=== PATIENT | male | born 1980 | race Caucasian/White ===

== ENCOUNTER 2025-01-20 20:02 | Emergency (ER) | payer BC, SELFPAY ==
[2025-01-20] VITALS (23 sets, daily range): BP systolic 132–139; BP diastolic 86–90; PULSE 108–133; TEMP 37.1; O2SAT 94–98; BMI 32.7
--- OUTSIDE RECORDS SUMMARY | 2025-01-20 20:13 | XMS_ITS | Clinical Summary ---
Author Organization [facility] Address [id number] [address] [place] [address] Care Team Providers Care Manager Service Desk Name Role Phone Aldo Cruz DO Primary Care Provider [phone] Allergies No known active allergies Medications MedicationSigDispense QuantityRefillsLast FilledStart DateEnd DateStatus allopurinoL (ZYLOPRIM) 100 mg tablet Take 1 tablet (100 mg total) by mouth in the morning.Active omeprazole (PriLOSEC) 20 mg capsule Take 1 capsule (20 mg total) by mouth in the morning.Active losartan (COZAAR) 50 mg tablet Take 1 tablet (50 mg total) by mouth in the morning.Active buPROPion (WELLBUTRIN) 100 mg tablet Take 1 tablet (100 mg total) by mouth in the morning and 1 tablet (100 mg total) before bedtime.Active Social History Tobacco UseTypesPacks/DayYears UsedDateSmoking Tobacco: NeverSmokeless Tobacco: Never Tobacco Cessation:Counseling Given: Not Answered Alcohol UseStandard Drinks/WeekCommentsYes0 (1 standard drink = 0.6 oz pure alcohol)occasionallyChildcareAnswerDate ZpcakiiaBwuzxpcefWfdgiro66/12/2019 EmploymentAnswerDate DdstklhqBnkseftkkgSdsvsde66/12/2019Hunger ScreeningAnswer Date RecordedWithin the past 12 months we worried whether our food would run out before we got money to buy more.Never True07/14/2022Within the past 12 months the food we bought just didn't last and we didn't have money to get more.Never True07/14/2022urpose - LifeAnswerDate RecordedPurpose and direction in life Qduiwpd0005/08/2020ex and Gender InformationValueDate RecordedSex Assigned at BirthNot on fileLegal AwlYepe1310/31/2014 11:41 AM EDTGender IdentityNot on file Sexual OrientationNot on file Last Filed Vital Signs Vital SignReadingTime TakenCommentsBlood Zgoynkvw016/9404 8:15 PM EDT Hytms9072 8:15 PM ZDFDiemqxgpzrc91.8 ??C (98.2 ??F)07/14/2022 8:15 PM EDTRespiratory Myrd392907/14/2022 8:15 PM EDTOxygen Vlzsmtomox03%07/14/2022 8:15 PM EDTInhaled Oxygen Concentration--Mmdmex875.3 kg (230 lb)07/14/2022 8:15 PM NODNwuvpe519.7 cm (5' 8 )07/14/2022 8:15 PM EDTBody Mass Index34.9707/14/2022 8:15 PM EDT Plan of Treatment Health MaintenanceDue DateLast DoneCommentsDepression Kkyqxrchl22/11/1995Tobacco Rrwvwptra31/11/1995DTaP,Tdap and Td Vaccines (1 - Tdap)2001Adult BMI Pdwvrpmlr60Influenza Axiehrr3211/26/2024 Medical Devices Not on file Insurance Care Teams Team MemberRelationshipSpecialtyStart DateEnd Date Aldo Cruz DO [address] [place] [id number] [facility]05/08/18
--- OUTSIDE RECORDS SUMMARY | 2025-01-20 20:13 | XMS_ITS | Clinical Summary ---
Author Organization [facility] Address [address] [place] [address] Phone Care Team Providers Care Analytics Consultant Name Role Phone Aldo Cruz DO Primary Care Provider [phone] Social History Tobacco UseTypesPacks/DayYears UsedDateSmoking Tobacco: Never AssessedSex and Gender InformationValueDate RecordedSex Assigned at BirthNot on fileLegal Sex Male03/24/2022 9:56 PM ESTGender IdentityNot on fileSexual OrientationNot on file Plan of Treatment Health MaintenanceDue DateLast DoneCommentsHIV Bxaiyzivc19/11/1983Lipid Panel 1982Yearly Adult Irdcnjji03/11/1983MMR Vaccines (1 of 1 - Standard series) 06/06/1983Hepatitis C Nrcwximpa37/11/2001Hepatitis B Vaccines (1 of 3 - 19+ 3- dose series)2001DTaP/Tdap/Td Vaccines (1 - Tdap)2004HPV Vaccines (1 - 3-dose standard series)2009Influenza Vaccine (#1)2024OVID-19 Vaccine (1 - season)2024Zoster Vaccines (1 of 2)2032HIB VaccinesAged OutNo longer eligible based on patient's age to complete this topic Hepatitis A VaccinesAged OutNo longer eligible based on patient's age to complete this topicIPV VaccinesAged OutNo longer eligible based on patient's age to complete this topicMeningococcal VaccineAged OutNo longer eligible based on patient's age to complete this topicPneumococcal Vaccine: Pediatrics and At-Risk Adult PatientsAged OutNo longer eligible based on patient's age to complete this topicRotavirus VaccinesAged OutNo longer eligible based on patient's age to complete this topic Care Teams Team MemberRelationshipSpecialtyStart DateEnd Date Aldo Cruz DO [facility] - Rocfxkq18/25/22
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
--- NOTE | 2025-01-20 20:34 | ECG_ITS ---
[facility] Test Date: 2025-01-20 Pat Name: ELIEL STEIN Department: Room: - Gender: Male Postal Supervisor: : 1980 Requested By: [id number] Order Number: [id number] Reading MD: REMEDIOS FREED M.D. Measurements Intervals Harris Rate: 124 P: 49 WY: 152 QRS: 22 QRSD: 86 T: 43 QT: 332 QTc: 406 Interpretive Statements 1120 Sinus tachycardia 9140 abnormal rhythm ECG No previous ECG available for comparison Electronically Signed On 01-20-2025 22:23:12 EDT by REMEDIOS FREED M.D.
[2025-01-20 20:53] LABS: SARS-CoV-2 Ag POSITIVE (NEGATIVE)
--- NOTE | 2025-01-20 20:55 | ED.URI1 ---
HPI - URI/Sore Throat General Chief Complaint: Upper Respiratory Infection Stated Complaint: FEVER, LIGHTHEADED Time Seen by Provider: 01/20/25 20:51 Source: patient Limitations: no limitations History of Present Illness HPI Narrative: Headache since yesterday. Productive cough but not short of breath. Took sudafed this AM for headache but did not help. Tried ibuprofen yesterday. Tonight feels light headed. No dizziness or GI symptoms Related Data Home Medications ?Medication ?Instructions ?Recorded ?Confirmed allopurinol 300 mg tablet 300 mg PO DAILY 01/20/25 01/20/25 losartan 100 mg tablet 100 mg PO DAILY 01/20/25 01/20/25 omeprazole 40 mg capsule,delayed 40 mg PO DAILY 01/20/25 01/20/25 release Allergies Allergy/AdvReac Type Severity Reaction Status Date / Time No Known Drug Allergies Allergy Verified 01/20/25 20:11 Review of Systems ROS Status of ROS 10 or more systems reviewed and unremarkable except as noted in history and below PFSH PFSH Social History Little interest or pleasure in doing things: not at all Feeling down, depressed, or hopeless: not at all Exam Constitutional Vital Signs, click to edit/add: Last Vital Signs Temp 98.7 F 01/20/25 20:05 Pulse 120 H 01/20/25 22:10 Resp 21 H 01/20/25 22:10 BP 132/86 01/20/25 20:32 Pulse Ox 96 01/20/25 21:20 O2 Del Method Room Air 01/20/25 20:05 Common normals: no apparent distress, average body habitus, oriented x3, no limitations, healthy appearing, alert and well nourished [facility] Common normals: normocephalic and head/scalp atraumatic Eye Common normals: EOMs intact bilaterally and conjunctivae normal Respiratory Common normals: normal respiratory effort, no retractions, no use of accessory muscles and clear to auscultation bilaterally Cardio Common normals: S1 normal heart sound and S2 normal heart sound Rate: tachycardic GI Common normals: Normal to inspection, nondistended, normoactive bowel sounds present, soft to palpation and non-tender Extremity Common normals: normal to inspection and full ROM Neuro Common normals: oriented x3, CN's II-XII intact bilaterally, moves all extremities and no focal motor deficits Psych Appearance: grossly normal Course Vital Signs Vital signs: Vital Signs Temperature 98.7 F 01/20/25 20:05 Pulse Rate 133 H 01/20/25 20:05 Respiratory Rate 18 01/20/25 20:05 Blood Pressure 139/90 01/20/25 20:05 Pulse Oximetry 96 01/20/25 20:05 Oxygen Delivery Method Room Air 01/20/25 20:05 Temperature 98.7 F 01/20/25 20:05 Pulse Rate 120 H 01/20/25 22:10 Respiratory Rate 21 H 01/20/25 22:10 Blood Pressure 132/86 01/20/25 20:32 Pulse Oximetry 96 01/20/25 21:20 Oxygen Delivery Method Room Air 01/20/25 20:05 MDM - URI/Sore Throat MDM Narrative Medical decision making narrative: patient presents with cough but is not short of breath. Has headache and tachycardia. symptoms started yesterday. Did take sudafed earlier today to see if it would help his headache but it did not. Exam neg except for tachycardia. COVID19 positive. Cxray clear per my preliminary review. Patient given solumedrol and magnesium for his headache and IV hydration for tachycardia BRENNER and tachycardia are both improving patient states the pseudophed he took this AM is a once a day medication. It is likely what is contributing to his tachycardia. He is advised to discontinue Pseudophed. He is to drink plenty of fluids and follow up with his family doctor for reheck. lab did demonstrate hypokalemia and this was supplemented and will need to be rechecked. serial troponin neg Lab Data Labs: Lab Results 01/20/25 01/20/25 01/20/25 Range/Units 20:20 21:15 23:56 WBC 8.9 (4.0-11.0) 10^3/uL RBC 4.53 L (4.70-6.10) 10^6/uL Hgb 14.4 (14.0-18.0) g/dL Hct 39.5 L (42.0-54.0) % MCV 87.2 (80.0-94.0) fL MCH 31.8 (25.9-34.0) pg MCHC 36.5 H (29.9-35.2) g/dL RDW 11.9 (11.0-15.0) % Plt Count 288 (150-450) 10^3/uL MPV 9.1 L (9.5-13.5) fL Neut % (Auto) 76.6 H (43.0-75.0) % Lymph % (Auto) 9.3 L (20.5-60.0) % [place] % (Auto) 9.5 (1.7-12.0) % Eos % (Auto) 3.7 (0.9-7.0) % Baso % (Auto) 0.7 (0.2-2.0) % Neut # (Auto) 6.8 H (1.4-6.5) 10^3/uL Lymph # (Auto) 0.8 L (1.2-3.8) 10^3/uL [place] # (Auto) 0.8 (0.3-0.8) 10^3/uL Eos # (Auto) 0.3 (0.0-0.7) 10^3/uL Baso # (Auto) 0.1 (0.0-0.1) 10^3/uL Abs Immat Gran (auto) 0.02 (0.00-0.03) 10^3/uL Imm/Tot Granulo (auto) 0.2 (0.0-0.5) % Sodium 139 (136-145) mmol/L Potassium 2.9 L* (3.5-5.1) mmol/L Chloride 102 (98-107) mmol/L Carbon Dioxide 29.4 (21.0-32.0) mmol/L Anion Gap 10.5 BUN 7.0 (7.0-18.0) mg/dL Creatinine 0.83 (0.70-1.30) mg/dL Est GFR ( Amer) >60 (>=60 mL/min/1.73m^2) Est GFR (Non-Af Amer) >60 (>=60 mL/min/1.73m^2) BUN/Creatinine Ratio 8.4 Glucose 120 H (74-106) mg/dL Lactate 1.6 (0.4-2.0) mmol/L Calcium 8.6 (8.5-10.1) mg/dL Troponin I High Sens 4.5 4.5 (4.0-76.1) pg/mL Influenza Type A Ag Negative Influenza Type B Ag Negative SARS-CoV-2 Ag (CV2AG) Positive A (NEGATIVE) Discharge Plan Discharge Chief Complaint: Upper Respiratory Infection Clinical Impression: COVID-19, Hypokalemia, Tachycardia Patient Disposition: Home, Self-Care Prescriptions / Home Meds: No Action allopurinol 300 mg tablet 300 mg PO DAILY losartan 100 mg tablet 100 mg PO DAILY Patient Comments: ran out, not taking at this time omeprazole 40 mg capsule,delayed release(DR/EC) 40 mg PO DAILY Print Language: Pashto Instructions: Hypokalemia (ED), Tachycardia (ED), COVID-19 (Coronavirus Disease 2019) (ED) Additional Instructions: Discontinue pseudophed. Drink plenty of fluids and follow up with your doctor for recheck and to have your potassium rechecked Referrals: HONEY OLMOS [Primary Care Provider, Family Practice] - 1 week
--- NOTE | 2025-01-20 21:04 | XR_ITS ---
[facility] [place] [id number] Patient Name: ELIEL STEIN MRN: [id number] date: 1980 Sex: M Assigned Patient Location: ER Current Patient Location: Accession/Order Number: [id number] Exam Date: 01/20/2025 21:32 Report Date: 01/21/2025 08:04 At the request of: TOBI HERNANDEZ MD Procedure: XR chest 1V PORTABLE AP ERECT CHEST 2059 hours CLINICAL HISTORY: COVID19 COMPARISON: None There is lordotic positioning. The heart is within normal limits. There is no vascular congestion. No consolidation is seen. There is no effusion or pneumothorax. The osseous structures are intact. XR/XR chest 1V IMPRESSION: NO ACUTE FINDINGS Impression dictated by: Kenia Still M.D. 01/21/2025 8:04 AM Dictation Location: [place] [address] Electronically authenticated by: [id number] Y Date: 01/21/2025 08:04
[2025-01-20] MEDS: 0.9 % SODIUM CHLORIDE 1,000 ML 999 ML IV ×2 (21:15→23:18)
[2025-01-20 21:26] LABS: Hematocrit 39.5 % (42.0-54.0); Hemoglobin 14.4 g/dL (14.0-18.0); Immature Granulocytes Abs Auto 0.02 10^3/uL (0.00-0.03); Immature Granulocytes Pct Auto 0.2 % (0.0-0.5); Lymphocytes Absolute Auto 0.8 10^3/uL (1.2-3.8); Mean Corpuscular HGB Conc 36.5 g/dL (29.9-35.2); Mean Corpuscular Hemoglobin 31.8 pg (25.9-34.0); Mean Corpuscular Volume 87.2 fL (80.0-94.0); Platelet Count 288 10^3/uL (150-450); Red Blood Count 4.53 10^6/uL (4.70-6.10); White Blood Count 8.9 10^3/uL (4.0-11.0)
[2025-01-20 21:46] LABS: Anion Gap 10.5; Blood Urea Nitrogen 7.0 mg/dL (7.0-18.0); Calcium 8.6 mg/dL (8.5-10.1); Carbon Dioxide 29.4 mmol/L (21.0-32.0); Chloride 102 mmol/L (98-107); Estimated GFR (African America >60 (>=60 mL/min/1.73m^2); Estimated GFR (Non-African Ame >60 (>=60 mL/min/1.73m^2); Glucose 120 mg/dL (74-106); Lactate/Lactic Acid 1.6 mmol/L (0.4-2.0); Sodium 139 mmol/L (136-145)
[2025-01-20 21:47] LABS: Potassium 2.9 mmol/L (3.5-5.1)
[2025-01-20] MEDS: POTASSIUM CHLORIDE 10 MEQ ER TABLET 40 MEQ PO (22:13)
[2025-01-20] MEDS: MAGNESIUM SULFATE IN WATER 2 GM/50 ML PREMIX IV (23:19)
[2025-01-20] MEDS: METHYLPREDNISOLONE SOD SUCC PF 125 MG/2 ML VIAL IVP (23:19)
[2025-01-21] VITALS: PULSE 112
[2025-01-21 00:10] VITALS: PULSE 117
[2025-01-21 00:20] VITALS: PULSE 115
[2025-01-21 00:30] VITALS: PULSE 112
== END 2025-01-21 00:44 | disposition home or self-care (01) ==
PROVIDERS: Emergency Provider Internal Medicine; PCP Family Medicine
DX: U07.1 COVID-19 (principal); E87.6 Hypokalemia; R00.0 Tachycardia, unspecified
CPT/HCPCS: 36415; 71045; 80048; 81001; 83605; 84484; 85025; 87804; 87811; 93005; 96365; 96375; 99284; 99285; J2919; J3475